=== PATIENT | female | born 1950 | race Caucasian/White ===

== ENCOUNTER → 2016-06-10 | Outpatient (CLI) | payer BC ==
--- NOTE | 2016-06-10 16:35 | DIAGNOSTIC IMAGING REPORT ---
RIGHT KNEE 3 VIEWS CLINICAL HISTORY: Right knee pain COMPARISON: None. DISCUSSION: No acute fractures are visualized. There are minor osteoarthritic changes. There are tiny medial joint compartment spurs. There is quadriceps insertional calcification at the superior patellar level. There is no evidence for soft tissue swelling. IMPRESSION: Minor degenerative change. No fractures are visualized. Electronically signed by: Ming Fuller M.D. 06/10/2016 4:32 PM Dictated Date/Time: 06/10/2016 4:32 PM
== END | disposition home or self-care (01) ==
LOC: C.RDSM 12:02
PROVIDERS: ATTEND Family Medicine
DX: M25.561 Pain in right knee (principal)